=== PATIENT | female | born 1995 | race Caucasian/White ===

== ENCOUNTER 2021-02-19 02:44 | Inpatient (IN) | payer OTHER ==
[~2021-02-19] VITALS: Ht 167.6 cm; Wt 66.2 kg
[~2021-02-19 02:44] MED LIST: COLACE 100MG C100 MG PO; FLINTSTONES1 EAC1 PO; IBUPROFEN600 MG PO; LORTAB 5-325 M1 EACH PO; PERCOCET 5/325 T1 EA PO; ZOFRAN4 MG PO
[2021-02-19 03:03] LABS: HEMOGLOBIN 13.1 gm/dl (12.3-15.3); RED BLOOD COUNT 4.22 M/UL (4.00-5.10); WHITE BLOOD COUNT 8.6 K/UL (4.5-11.0)
[2021-02-20 06:07] LABS: HEMOGLOBIN 11.5 gm/dl (12.3-15.3)
[2021-02-20] MEDS ORDERED: DOCUSATE SODIU250 MG PO (10:31)
[2021-02-20] MEDS ORDERED: HYDROCODONE-AC1 EACH PO (10:31)
[2021-02-20] MEDS ORDERED: IBUPROFEN600 MG PO (10:31)
== END 2021-02-20 12:22 | disposition home or self-care (01) | DRG 807 ==
LOC: GENOP 02:44 → OB 03:14
PROVIDERS: ADMIT Obstetrics & Gynecology
PROC: 10E0XZZ Delivery of Products of Conception, External Approach (ICD-10-PCS; principal; 2021-02-19)
PROC: 0KQM0ZZ Repair Perineum Muscle, Open Approach (ICD-10-PCS; 2021-02-19)
DX: O69.81X0 Labor and delivery complicated by cord around neck, without compression, not applicable or unspecified (principal); Z37.0 Single live birth; O70.1 Second degree perineal laceration during delivery; Z3A.37 37 weeks gestation of pregnancy; Z28.21 Immunization not carried out because of patient refusal; O24.429 Gestational diabetes mellitus in childbirth, unspecified control
CPT/HCPCS: 36415; 51702; 82800; 82962; 85014; 85018; 85025; J0690; J2001; J2405; J2590; J3010; J3430; U0002

== ENCOUNTER 2021-02-24 18:34 | Emergency (ER) | payer OTHER ==
[~2021-02-24 18:34] MED LIST changes: +DOCUSATE SODIU250 MG PO; +HYDROCODONE-AC1 EACH PO
[2021-02-24 20:09] LABS: RED BLOOD COUNT 4.8 M/UL (4.00-5.10); WHITE BLOOD COUNT 8.4 K/UL (4.5-11.0)
[2021-02-24 20:32] LABS: BUN/CREATININE RATIO 20 (0-10)
== END 2021-02-24 22:25 | disposition home or self-care (01) ==
LOC: ER1 18:34
PROVIDERS: Physician Assistant
DX: O86.4 Pyrexia of unknown origin following delivery (principal); Z88.0 Allergy status to penicillin; Z20.822 Contact with and (suspected) exposure to COVID-19
CPT/HCPCS: 0240U; 80053; 81001; 85025; 99283; J7030